=== PATIENT | female | born 1960 | race Caucasian/White ===

== ENCOUNTER → 2023-09-09 09:05 | Outpatient (REF) | payer OTHER, SELFPAY ==
[2023-09-09 10:23] LABS: Urine Albumin Trace (Neg - Trace); Urine Bilirubin 1+ (Negative); Urine Character Clear (Clear); Urine Color Yellow; Urine Glucose Negative (Negative); Urine Ketone Trace (Negative); Urine Leukocyte 1+ (Negative); Urine Nitrite Negative (Negative); Urine Occult Blood 1+ (Negative); Urine Specific Gravity 1.025 (<1.030); Urine Urobilinogen Negative (Neg - 1+)
[2023-09-09 10:24] LABS: % Basophils 0.9 % (0-2); % Eosinophils 2.5 % (0-6); % Immature Granulocytes 0.5 % (0-0.5); % Monocytes 6.2 % (1.7-9.3); % Neutrophils 63.9 % (42.2-75.2); Absolute Basophils 0.1 10^3/uL (0-0.2); Absolute Eosinophils 0.2 10^3/uL (0-0.7); Absolute Lymphocytes 1.7 10^3/uL (1.2-3.4); Absolute Monocytes 0.4 10^3/uL (0.1-0.6); Absolute Neutrophils 4.1 10^3/uL (1.4-6.5); Hematocrit 47.2 % (37.0-47.0); Hemoglobin 15.8 g/dL (12.0-16.0); Mean Corp Hgb Conc. 33.5 g/dL (33.0-37.0); Mean Corpuscular Hgb 28.5 pg (27.0-31.0); Nucleated Red Blood Cells % 0 %; Platelet Count 236 10^3/uL (130-400); Red Blood Cell Count 5.55 10^6/uL (4.20-5.40); Red Cell Dist. Width 12.4 % (11.5-14.5); White Blood Cell Count 6.3 10^3/uL (4.8-10.8)
[2023-09-09 10:47] LABS: ALT (SGPT) 14 U/L (0-35); AST (SGOT) 22 U/L (14-36); Albumin 4.6 g/dl (3.5-5.0); Alkaline Phosphatase 72 U/L (38-126); Blood Urea Nitrogen 18 mg/dl (7-17); Calcium 10.2 mg/dl (8.4-10.2); Carbon Dioxide 26 mmol/L (22-30); Chloride 103 mmol/L (98-107); Glucose 97 mg/dl (70-99); HDL Cholesterol 61 mg/dl; LDL Cholesterol, Calculated 74 mg/dl; Sodium 141 mmol/L (135-145); Total Bilirubin 0.6 mg/dl (0.2-1.3); Total Cholesterol 151 mg/dl (50-199); Total Protein 7.2 g/dl (6.3-8.2); Triglyceride 82 mg/dl (10-149); Very Low Density Lipoprotein 16 mg/dl (0-30); eGFR > 60.00
[2023-09-09 10:57] LABS: Urine Mucus Many
[2023-09-09 10:58] LABS: Urine Amorphous Seen; Urine Squamous Cell 0-2 /LPF (Few)
[2023-09-09 10:59] LABS: Urine Hyaline Cast 0-2 /LPF (0-2)
[2023-09-09 11:02] LABS: Urine Bacteria Few (Negative)
[2023-09-09 11:18] LABS: TSH Reflex To Free T4 3.65 uIU/ml (0.47-4.68)
== END ==
LOC: RAD 09:05
PROVIDERS: ATTENDING PHYSICIAN Nurse Practitioner Family
DX: Z76.89 Persons encountering health services in other specified circumstances (principal); Z01.89 Encounter for other specified special examinations; R06.09 Other forms of dyspnea; R07.89 Other chest pain; Z86.711 Personal history of pulmonary embolism
CPT/HCPCS: 36415; 71046; 71275; 80053; 80061; 81003; 81015; 84443; 85025; 85379; 87086; 93005; Q9967

== ENCOUNTER 2023-09-09 17:49 | Inpatient (IN) | payer OTHER, SELFPAY ==
[2023-09-09] VITALS (8 sets, daily range): BP systolic 116–148; BP diastolic 49–89; BMI 35.8; BMI 35.9
--- NOTE | 2023-09-09 16:08 | EDRN ---
the pt on RA was 92%, Emilie SUAREZ at the pts bedside and per provider 2L NC was placed on the pt, Sp02 came up to 96%, will continue to monitor the pt closely
[2023-09-09 16:19] LABS: % Basophils 0.6 % (0-2); % Eosinophils 3.3 % (0-6); % Immature Granulocytes 0.3 % (0-0.5); % Lymphocytes 29.2 % (20.5-51.1); % Monocytes 7.4 % (1.7-9.3); % Neutrophils 59.2 % (42.2-75.2); Absolute Eosinophils 0.2 10^3/uL (0-0.7); Absolute Lymphocytes 1.9 10^3/uL (1.2-3.4); Absolute Monocytes 0.5 10^3/uL (0.1-0.6); Absolute Neutrophils 3.8 10^3/uL (1.4-6.5); Hematocrit 43.2 % (37.0-47.0); Hemoglobin 15.1 g/dL (12.0-16.0); Mean Corpuscular Hgb 28.8 pg (27.0-31.0); Mean Corpuscular Volume 82.4 fL (81.0-99.0); Mean Platelet Volume 9.2 fL (7.4-10.4); Nucleated Red Blood Cells % 0 %; Platelet Count 260 10^3/uL (130-400); Red Blood Cell Count 5.24 10^6/uL (4.20-5.40); Red Cell Dist. Width 12.6 % (11.5-14.5); White Blood Cell Count 6.4 10^3/uL (4.8-10.8)
--- NOTE | 2023-09-09 16:22 | ED.GENMED ---
History of Present Illness
General
Chief Complaint: Breathing Problem
Source: patient
Exam Limitations: none
Time Seen by Provider: 09/09/23 15:47
Nursing documentation reviewed up to this point in time: agreed with
Travel History
Have you had any contact with someone who has COVID-19?: No
Do you have any symptoms of coronavirus? Fever > 100 degrees, chills, cough, shortness of breath, sore throat, loss of taste or smell, muscle aches, or headache?: No
History of Present Illness
History of Present Illness:
63 y/o F with h/o previous B/L PE
treated with xarelto in 2018 after traveling to [place]
had covid 1.5 weeks ago
then on 09/03 pt started having exertional chest pain, initially with more distance walking and stair walking but then progressed to a few steps causing symptoms
no fever, chills, vomiting, diarrhea, leg swelling, syncope
on no medications
no chest pain at rest or with exertion
her sob is only with exertion
Past History
Past History
ED Past Medical History: Other (PE)
ED Past Surgical History: None
Social History
Tobacco: Non-smoker
Alcohol: None
Drug: None
Personal: Single
Living: alone
Review of Systems
Review of Systems
Allergies reviewed?: Yes
All Other Systems: Not applicable
Phy Exam
Physical Exam
Physical Exam:
GENERAL: Alert , in no apparent distress
EYE: pupils equal and reactive
NECK: Supple
ENT: o/p clr, mmm.
CARDIAC: Regular rate and rhythm .
LUNGS: Clear breath sounds bilaterally, no acute respiratory distress, no wheezes/rales/rhonchi
ABDOMEN: Soft, without focal tenderness, no r/g, no cvat, normal bowel sounds
NEUROLOGICAL: Alert and oriented, no focal neuro deficits
SKIN: Warm and dry, skin intact.
MUSCULOSKELETAL: No edema, well perfused. neg rod's sign
PSYCH: Normal and appropriate interaction.
Scores
Heart Failure Risk
Heart Failure Risk Score: Not Applicable
Course
Orders/Labs/Results
Orders:
Orders
09/09/23 Dinner
Regular
At Your Request: Full Participation
Does patient need a safe tray?: No
09/09/23 15:45
Electrocardiogram (*1) Urgent
Reason for Study: Shortness of Breath
09/09/23 15:46
EKG- Treatment ONCE
09/09/23 15:53
COVID-19 Antigen Urgent
Source: Nasal Swab
Complete Blood Count/With Diff Urgent
Comprehensive Metabolic Panel Urgent
NT-proBNP Urgent
PT/INR [Prothrombin Time] Urgent
PTT Urgent
Troponin I Urgent
Influenza A+B Rapid Molecular Urgent
MICHELLE Source: Nasal Swab
Specimen Description:
09/09/23 16:16
Heparin 8,100 units IV NOW STA
09/09/23 16:[address] Non Medication Order As Directed
Physician Order: PTT 6 hours after initial start of Heparin infusion
Above order entered?: Yes
09/09/23 16:30
Heparin 05162 Units/250 ml 25,000 units in 250 ml IV PER PROTOCOL
Weight to be used for heparin protocol in kilograms (kg):: 100.698
Protocol:: DVT/PE
PTT Goal Range to be used:: PTT 73 to 111 seconds
Order type:: Initial
INITIAL Infusion Dose (UNITS/KG/hr) & then follow protocol:: 18 units/kg/hr
Infusion Dose in UNITS/hr & then follow protocol (UNITS/hr):: 1,800
INFUSION RATE in mL/hr & then follow protocol (mL/hr):: 18
For DVT/PE algorithm, re-bolus for low PTT?: Yes
PTT less than or equal to 64 seconds:: Re-bolus 80 units/kg (max 10,000units). Increase by 400 units/hr
(+ 4mL/hr)
PTT 64.1 to 72.9 seconds:: Re-bolus 40 units/kg (max 5,000 units). Increase by 200 units/hr
(+ 2mL/hr)
PTT 73 to 111 seconds:: Target Range. No change in rate.
PTT 111.1 to 130.9 seconds:: Decrease rate by 200 units/hr (- 2 mL/hr)
PTT 131 to 199.9 seconds:: HOLD for 1 hr. Then decrease by 300 units/hr (- 3mL/hr)
PTT greater than or equal to 200 seconds:: HOLD for 2 hrs & Notify Provider. Then decrease by 400 units/hr
(- 4mL/hr)
Lab follow-up:: Each change, PTT q6h until 2 consecutive are therapeutic. Then
PTT daily.
09/09/23 16:34
Heparin 67701 Units/250 ml 25,000 units in 250 ml .ROUTE .STK-MED
09/09/23 16:42
Heparin 8,100 units IV PRN PRN
09/09/23 16:43
Heparin 4,000 units IV PRN PRN
09/09/23 17:13
Admit/Transfer Patient As Directed
Co-Sign Provider:
Level of Care: Inpatient admission
Assign to:: Telemetry
Physician / Group: Reza Aguirre
Diagnosis: Bilateral PE
Reason for Telemetry: Arrhythmia
Date to Stop Telemetry: 09/12/23
Time to Stop Telemetry: 11:00
Reason for Hospitalization: Bilateral PE
Expected length of stay greater than two midnights?: Yes
ELOS- Estimated Length of Stay in days: 3
I certify the patient meets the requirements for IP care: Yes
09/09/23 17:14
Code Status As Directed
Resuscitation Status: Full Code
09/09/23 19:29
Acetaminophen [Tylenol] 650 mg PO Q4HPRN PRN
Ondansetron Injectable [Zofran] 4 mg IV Q6HPRN PRN
09/09/23 19:29
Heparin Protocol- PTT Orders As Directed
PTT per Heparin protocol: -Obtain CBC and baseline PTT - if not already collected.
-Obtain PTT 6 hours from start of infusion. Then, every 6 hours until 2 consecutive
PTT's are therapeutic. Then, PTT Daily.
-With each rate change, obtain PTT every 6 hours until 2 consecutive PTT's are
therapeutic. Then, PTT Daily.
Activity As Directed
Activity Level: As Tolerated
With Assistance
Notify MD As Directed
Notify physician if: PTT is greater than or equal to 200.
Vital Signs As Directed
Frequency: Per unit guidelines
09/09/23 23:26
PTT Urgent
09/10/23 06:00
Basic Metabolic Panel IN AM
Complete Blood Count/No Diff IN AM
09/12/23 11:00
DC Protocol for Telemetry ONCE
Abnormal Lab Results
09/09/23
15:53
BUN 20 H mg/dl
(7-17)
Glucose 118 H mg/dl
(70-99)
09/09/23 15:53
09/09/23 15:53
Vital Signs
Initial and Last Documented VS:
Initial Vital Signs
Temp Pulse Resp BP Pulse Ox
97.6 F 103 20 139/89 92
09/09/23 15:30 09/09/23 15:30 09/09/23 15:30 09/09/23 15:30 09/09/23 15:30
Last Documented Vital Signs
Temp Pulse Resp BP Pulse Ox
97.9 F 62 18 135/71 97
09/09/23 23:46 09/09/23 23:46 09/09/23 23:46 09/09/23 23:46 09/09/23 19:59
MDM/Problems Addressed
Differential Diagnosis Includes:
PE, right heart strain
MDM/Problems Addressed:
63 y/o F with h/o PE in 2018 after travel; not anticoagulated; had covid last week; starting 09/03 she started having exertional SOB; outpatient CT shows b/l Upper lobe and Lower lobe PE with no ct evidence R heart strain; ekg with t wave inv III,v1,
v2, v3, v4; stable vitals, pulse ox 92% RA and on 2L for comfort but in no distress; still pending trop but no CP. d/w dr. ashley from pulmonary, recommended heparin, no IR.
*Critical Care Note
Total Time (30-74mins, 75-104mins- exclusive of procedures): Not Applicable
ED Attending Note
-
Portions of this chart may have been created with voice recognition software.� Occasional wrong word or��sound alike� substitutions may have occurred due to the inherent limitations of voice recognition software.
Discharge Plan
Departure
Patient Disposition: Admit
Date of Disposition: 09/09/23
Time of Disposition: 16:33
Admit to: Telemetry
Presentation/result/management discussed w/ accepting MD/DO: Hospitalist
Condition: Fair
Covid-19: Not Applicable
Discharge Problem:
Bilateral pulmonary embolism
Interventions
Interventions:
*Risk Screen - Suicide Last Done: 09/09/23 15:30
*General Assessment Last Done: 09/09/23 15:57
*Neglect/Abuse Screening Last Done: 09/09/23 15:30
ED- Fall Risk Assessment Last Done: 09/09/23 15:57
*ED COVID-19 Vaccine History Last Done: 09/09/23 19:58
*Nursing Disposition Last Done: 09/09/23 19:00
ED- Cardiac Assessment Last Done: 09/09/23 19:12
ED- Pulmonary Assessment Last Done: 09/09/23 19:12
Discharge Date and Time
Discharge Date/Time: 09/09/23 19:00
[2023-09-09 16:25] LABS: COVID-19 Antigen Negative (Negative)
--- NOTE | 2023-09-09 16:26 | PHANOTE ---
med rec note- patient said that she has been using ivermectin at her md office, explain that she doesn't get it at her pharmacy that she makes an appointment and the md gives her the medication to take at the office. she also explain that she last
took it about 3 days ago
[2023-09-09 16:39] LABS: ALT (SGPT) 16 U/L (0-35); AST (SGOT) 24 U/L (14-36); Albumin 4.3 g/dl (3.5-5.0); Alkaline Phosphatase 74 U/L (38-126); Blood Urea Nitrogen 20 mg/dl (7-17); Carbon Dioxide 25 mmol/L (22-30); Chloride 103 mmol/L (98-107); Estimated Creatinine Clearance 88 ml/min; Glucose 118 mg/dl (70-99); INR 1.01; PT 13.1 Sec (11.4-14.6); Sodium 139 mmol/L (135-145); Total Bilirubin 0.4 mg/dl (0.2-1.3); Total Protein 6.8 g/dl (6.3-8.2); eGFR > 60.00
[2023-09-09 16:40] LABS: APTT 27.5 Sec (23.4-35.0)
[2023-09-09 16:45] LABS: NT-proBNP 479 pg/ml
[2023-09-09] MEDS: HEPARIN 8100 UNITS IV (17:03)
[2023-09-09] MEDS: HEPARIN 25000 UNITS/250 ML IV (17:04)
--- NOTE | 2023-09-09 17:11 | EDRN ---
s pts Sp02 was 91% on 2L NC, this RN notified the provider Emilie SUAREZ and per provider the pt was titrated to 3L NC, the pts Sp02 came up to 94%, will continue to monitor the pt closely
--- NOTE | 2023-09-09 17:32 | HPS.HSE ---
Addendum entered and electronically signed by Reza Aguirre MD 09/09/23 18:12:
I saw and examined the patient.
The TAPE CONTROLLED MACHINE STITCHER's note was reviewed and I agree with the note.
63-year-old female with recent COVID infection came to ER for having new onset of dyspnea on exertion for 5 days. Patient had associated chest tightness, no palpitations/dizziness . Patient with history of provoked DVT/PE in 2019 after travel.
Patient was on Xarelto at the time.
HEENT: No pallor, cyanosis, or jaundice. Throat clear.
NECK: Supple. No JVD.
RESPIRATORY: Lungs clear to auscultation.
CVS: S1, S2 normal. RRR. No murmur, rub or gallop.
ABDOMEN: Soft, non-tender. No distension. BS+/normal.
EXTREMITIES: No peripheral cyanosis or edema.
FARM SUPERVISOR: AOx3. No focal deficits.
Bilateral PE
Acute hypoxic resp insufficiency
-CT chest pain showing bilateral lung upper lobe emboli burden no evidence of heart strain
-Check proBNP/troponin level
-Patient vitally stable, systolic blood pressure in 130s. On 1-2/min oxygen with O2 sat 97%
-ER discussed with on-call bike assembler and no indication for emergent thrombolysis. Continue monitoring
-PESI score 2 -low risk
-Maintain heparin drip, patient have been on xarelto on first episode of VTE
Full code
Original Note:
Family Physician
-
Family Physician: Som Bansal
Chief Complaint
-
Shortness of Breath
History of Present Illness
Patient is a 63 y/o female with PMH of sleep apnea, stroke and provoked B/L PE in 2019 who presents to ED complaining of worsening dyspnea on exertion x 5 days. Patient says she tested positive for Covid-Tuesday08/31/2023 and was prescribed
Ivermectin which she took for 5 days and her viral symptoms resolved. On Tuesday09/04/2023 patient noticed SOB with climbing a flight of stairs which worsened over the following days to SOB with just a few steps. She says her lungs feel 'stiff and
rigid' with breathing and admits to chest tightness. Patient also admits to palpitations and mostly dry cough for the past 5 days. She denies hemoptysis, chest pain, pleurisy, lower extremity edema, and weight gain. She admits to prior PE following
a flight to [place] in Jun 2019. She denies PMH of hypertension, hyperlipidemia, and diabetes. She denies hormone replacement therapy. She denies known family history of DVT, pulmonary embolism, stroke, and hematologic pathologies.
Medical History
Past Medical History
Past Medical History: Reports Other
Additional Past Medical History:
Pulmonary Embolism
Atrial Septal Defect
Prior Stroke
Obstructive Sleep Apnea
Past Surgical History: Reports Other
Additional Past Surgical History:
Tonsillectomy
Social History
Tobacco: Non-smoker
Family History
Family History: Other (Patient denies any family history of DVT/PE)
Allergies / Home Medications
Allergies reflects when Allergies were last updated in [facility].
Home Medications with original date entered in [facility]
Allergy/Medication List:
Allergies
Allergy/AdvReac Type Severity Reaction Status Date / Time
No Known Allergies Allergy Unverified 09/09/23 16:37
Home Medications
No Meds [No Current Medications] 09/09/23
Review of Systems
-
A 12 point ROS was completed and negative except as noted: Yes
Constitutional: Denies Fever or Chills
Respiratory: Reports Trouble Breathing
Cardiac: Reports Chest Pain (Chest Tightness) and Palpitations
Abdomen/GI: Denies Abdominal Pain, Nausea, Vomiting or Diarrhea
Physical Exam
Vital Signs
Vital Signs
Temp Pulse Resp BP Pulse Ox
97.6 F 79 15 118/66 95
09/09/23 15:30 09/09/23 17:00 09/09/23 17:00 09/09/23 17:00 09/09/23 17:00
Physical Exam
General: Comfortable and Conversant
HEENT: Anicteric and Moist mucous membranes
Respiratory: Clear and Non Labored Respirations
Cardiac: S1/S2 and Regular Rhythm
GI: Soft, Non Tender and Non Distended
Rectal: Deferred by Provider
Musculoskeletal: No Clubbing, No Cyanosis and No Edema
Skin: Warm and Dry
Neuro: Awake, Alert, Oriented and Nonfocal/grossly intact
Psych: Calm
Laboratory Results
-
09/09/23 15:53
09/09/23 15:53
Laboratory Results
PT 13.1 Sec (11.4-14.6) 09/09/23 15:53
INR 1.01 09/09/23 15:53
APTT Cancelled 09/09/23 16:19
Total Bilirubin 0.4 mg/dl (0.2-1.3) 09/09/23 15:53
AST 24 U/L (14-36) 09/09/23 15:53
ALT 16 U/L (0-35) 09/09/23 15:53
Alkaline Phosphatase 74 U/L (38-126) 09/09/23 15:53
Troponin I 0.030 ng/ml 09/09/23 15:53
Data Reviewed
-
CT Scan: Report Reviewed by me
Lab Data: Labs Reviewed by me
Impression/Plan
-
Acute Hypoxic Respiratory Insufficiency secondary to Bilateral Pulmonary Embolism
-Continue heparin drip
-Consider Echo
-Plan to transition to Xarelto prior to discharge
Obstructive Sleep Apnea
-Patient reports intolerance to CPAP
Code Status: Full Code
--- NOTE | 2023-09-09 18:32 | EDRN ---
the pt pressed the call link and this RN entered the pts room, the pt stated to this RN that she needed to use the bathroom, this RN unhooked the pt from the monitor and the pt was able to ambulate to the bathroom and back to the stretcher with no
issues, this RN placed the pt back on the monitor and the pt is in NSR in the 70's, last BP 117/58 (77), the pt on RA while walking to the bathroom and Sp02 dipped to 88%, this RN placed the pt back on 3L NC and Sp02 came up to 94%, no c/o chest
pain, no c/o SOB, the pts Heparin gtt is currently still running at 180units/hour, the pt is resting in stretcher in the lowest position, side rails up x2, call link within reach, HOB elevated, will continue to monitor the pt closely
--- NOTE | 2023-09-09 19:00 | EDRN ---
this RN called the receiving unit and notified them that paper report was going to be tubed up
[2023-09-10 00:11] LABS: APTT > 200 Sec (23.4-35.0)
--- NOTE | 2023-09-10 00:58 | PTCARENOTE ---
Addendum entered by Tayla Grier RN 09/10/23 01:03:
Pt lab called with PTT>200. OIL REFINER self contained behavior unit teacher made aware of it & pt heparin drip held as per protocol & will restart at lower rate as per orders. Pt asymptomatic at this time.Call [place] in reach.
Original Note:
Pt aaox3 able to make her needs known,pleasant & cooperative. Pt received from ER with heparin drip running at 18ml/hr. Pt oriented to room & call link in reach. Plan of care continued.
[2023-09-10 03:51] VITALS: BP 117/63
[2023-09-10 07:35] VITALS: BP 117/58
[2023-09-10 08:44] LABS: Hematocrit 45.4 % (37.0-47.0); Hemoglobin 15.2 g/dL (12.0-16.0); Mean Corp Hgb Conc. 33.5 g/dL (33.0-37.0); Mean Corpuscular Hgb 28.6 pg (27.0-31.0); Mean Corpuscular Volume 85.3 fL (81.0-99.0); Mean Platelet Volume 9.1 fL (7.4-10.4); Platelet Count 233 10^3/uL (130-400); Red Blood Cell Count 5.32 10^6/uL (4.20-5.40); Red Cell Dist. Width 12.5 % (11.5-14.5); White Blood Cell Count 4.9 10^3/uL (4.8-10.8)
[2023-09-10 08:48] LABS: APTT 98.8 Sec (23.4-35.0)
[2023-09-10 09:53] LABS: Blood Urea Nitrogen 15 mg/dl (7-17); Calcium 9.6 mg/dl (8.4-10.2); Carbon Dioxide 23 mmol/L (22-30); Chloride 105 mmol/L (98-107); Estimated Creatinine Clearance 89 ml/min; Glucose 97 mg/dl (70-99); Potassium 3.8 mmol/L (3.5-5.1); Sodium 140 mmol/L (135-145); eGFR > 60.00
--- NOTE | 2023-09-10 10:49 | W.PN.HOSP.TC ---
Today's Communication/Plan
-
wean off o2
f/u venous doppler report
Assessment / Plan
Assessment / Plan
Bilateral PE
Acute hypoxic resp insufficiency
-CT chest pain showing bilateral lung upper lobe emboli burden no evidence of heart strain
-proBNP/troponin WNL
-Patient vitally stable, systolic blood pressure in 130s.�
-On 2-3L/min oxygen with O2 sat 97%
-ER discussed with on-call fibreglass lay up worker and no indication for emergent thrombolysis.� Continue monitoring
-PESI score 2� -low risk
-Maintain heparin drip, patient have been on xarelto on first episode of VTE
-Le venous doppler pending today
Full code
Anticipated Discharge: 24 - 48 hours
Subjective/Interval History
-
Date of Service: September 10, 2023
Remains hypoxic on 2-3 L oxygen nasal cannula
No reported dyspnea/chest pain
Objective Data
-
Labs:
Laboratory Results
09/09/23 09/10/23 09/10/23
23:26 08:17 14:20
WBC 4.9
Hgb 15.2
Hct 45.4
Plt Count 233
APTT > 200 H* 98.8 H Pending
Sodium 140
Potassium 3.8
Chloride 105
Carbon Dioxide 23
BUN 15
Creatinine 0.8
Glucose 97
Calcium 9.6
Vital Signs:
Vital Signs
Temp Pulse Resp BP Pulse Ox
97.5 F 59 18 117/58 97
09/10/23 07:35 09/10/23 07:35 09/10/23 07:35 09/10/23 07:35 09/10/23 07:35
I&O
09/09/23 09/10/23 09/11/23
06:59 06:59 07:59
Intake Total 240 / 240
Balance 240 / 240
Review of Systems
-
Respiratory: Reports No Symptoms
Cardiac: Reports No Symptoms
Abdomen/GI: Reports No Symptoms
Physical Exam
-
General: No Apparent Distress and Comfortable
HEENT: Negative Oxygen
Respiratory: Clear to Auscultation
Cardiac: Regular Rhythm and S1/S2; Negative Murmur or Rub
GI: Soft, Nontender and Nondistended
Musculoskeletal: No Edema
Neuro: Awake, Alert, Oriented, No Motor Deficits and Nonfocal/Grossly Intact
Psych: Calm
[2023-09-10] MEDS: HEPARIN 25000 UNITS/250 ML IV (11:27)
[2023-09-10 11:30] VITALS: BP 124/64
[2023-09-10 14:56] LABS: APTT 96.3 Sec (23.4-35.0)
[2023-09-10 15:28] VITALS: BP 119/49
[2023-09-10 19:45] VITALS: BP 120/58
[2023-09-10] MEDS: VISBIOME 1 CAP PO (20:38)
[2023-09-10 23:27] VITALS: BP 127/70
[2023-09-11] VITALS (7 sets, daily range): BP systolic 99–146; BP diastolic 63–80; O2SAT 87–94
[2023-09-11] MEDS: HEPARIN 25000 UNITS/250 ML IV (06:37)
[2023-09-11 06:51] LABS: APTT 117.6 Sec (23.4-35.0)
[2023-09-11] MEDS: VISBIOME 1 CAP PO (08:36)
[2023-09-11] MEDS: XARELTO 15 MG PO ×2 (11:01→20:47)
--- NOTE | 2023-09-11 11:04 | PTCARENOTE ---
Heparin drip discontinued at this time per MD orders and xarelto administered.
--- NOTE | 2023-09-11 11:24 | PTCARENOTE ---
Pulsox 94% at rest on RA. After walking about 350 ft pt became SOB and pulsox dropped to 87% on RA. 2L O2 placed on patient and pulsox recovered to 93%. Pt continued to ambulate approx 100ft on 2L and pulsox remained 91% or above.
--- NOTE | 2023-09-11 11:47 | W.PN.HOSP.TC ---
Today's Communication/Plan
-
home o2 arrangement
discharge planning
Assessment / Plan
Assessment / Plan
Bilateral PE
Acute hypoxic resp insufficiency
-CT chest pain showing bilateral lung upper lobe emboli burden no evidence of heart strain
-proBNP/troponin WNL
-ER discussed with on-call supervisor shed workers and no indication for emergent thrombolysis.� Continue monitoring
-PESI score 2� -low risk
-Maintain heparin drip, patient have been on xarelto on first episode of VTE
-Le venous doppler normal.
-Home o2 assessment orderd
-changed to xarelto
Full code
Anticipated Discharge: Within 24 hours
Subjective/Interval History
-
Date of Service: September 11, 2023
Continues to remain hypoxic
no chest pain/palpitation
Objective Data
-
Labs:
Laboratory Results
09/11/23 09/11/23
06:23 14:30
APTT 117.6 H Pending
Vital Signs:
Vital Signs
Temp Pulse Resp BP Pulse Ox
97.5 F 70 20 132/65 95
09/11/23 11:35 09/11/23 11:35 09/11/23 11:35 09/11/23 11:35 09/11/23 11:35
I&O
09/10/23 09/11/23 09/12/23
05:59 06:59 06:59
Intake Total
Balance
Review of Systems
-
Respiratory: Reports No Symptoms
Cardiac: Reports No Symptoms
Abdomen/GI: Reports No Symptoms
Physical Exam
-
General: No Apparent Distress and Comfortable
HEENT: Negative Oxygen
Respiratory: Clear to Auscultation
Cardiac: Regular Rhythm and S1/S2; Negative Murmur or Rub
GI: Soft, Nontender and Nondistended
Neuro: Awake, Alert, Oriented, No Motor Deficits and Nonfocal/Grossly Intact
Psych: Calm
--- NOTE | 2023-09-11 14:36 | CM ---
CM following re: d/c planning
Chart reviewed
CM met with the patient at bedside; IA completed
Pt states that she resides alone in a 1SH with 4STE
CREDIT UNION TELLER patient reports independence at baseline
Pt has no past SNF hx, no recent VN hx (last VN was in 2009 & pt doesn't recall the agency) and no noted DME
Pt does confirm prescription coverage and rx's are filled at [facility]
Pt PCP-Som Bansal
Pt had home O2 assessment and does qualify for home O2
CM asked the patient if she had an agency she preferred to use and she was not familiar with any and was open to whichever could deliver the quickest
CM faxed referral to [facility] and Laura did send this teletypewriter operator a confirmation text that clinicals were received & the patient would be receiving a portable tank delivered bedside tomorrow 09/12/23 by 2pm
No additional d/c needs identified
CM will continue to follow and assist with any additional needs as indicated
PLAN; d/c home with O2 provided by [employer] when stable
[2023-09-12 03:41] VITALS: BP 120/62
[2023-09-12 07:45] LABS: Hematocrit 42.1 % (37.0-47.0); Hemoglobin 14.3 g/dL (12.0-16.0); Mean Corpuscular Hgb 28.9 pg (27.0-31.0); Mean Corpuscular Volume 85.2 fL (81.0-99.0); Platelet Count 214 10^3/uL (130-400); Red Blood Cell Count 4.94 10^6/uL (4.20-5.40); Red Cell Dist. Width 12.2 % (11.5-14.5); White Blood Cell Count 4.5 10^3/uL (4.8-10.8)
[2023-09-12 07:50] VITALS: BP 118/70
--- NOTE | 2023-09-12 08:18 | W.PN.HOSP.TC ---
Today's Communication/Plan
-
Continue anticoagulation
Remains symptomatic with SOB and earlier today, some dizziness
Echo ordered
Appreciate pulmonary recommendations
Assessment / Plan
Assessment / Plan
Physical Exam
General: No Apparent Distress and Comfortable
HEENT: Negative Oxygen
Respiratory: Clear to Auscultation
Cardiac: Regular Rhythm and S1/S2; Negative Murmur or Rub
GI: Soft, Nontender and Nondistended
Neuro: Awake, Alert, Oriented, No Motor Deficits and Nonfocal/Grossly Intact
Psych: Calm
Assessment/Plan
Bilateral PE
History of PE
Acute hypoxic resp insufficiency
-CT chest pain showed bilateral lung upper lobe emboli burden no evidence of heart strain
-proBNP/troponin WNL
-ER discussed with on-call production generalist and no indication for emergent thrombolysis.� Continue monitoring
-PESI score 2 - low risk
-Was on Heparin drip, patient have been on xarelto on first episode of VTE
-Le venous doppler normal.
-Home o2 assessment ordered
-Continue Xarelto
-Echocardiogram ordered
-Pulmonary consulted
Full code
Anticipated Discharge: Within 24 hours
Subjective/Interval History
-
Date of Service: September 12, 2023
Patient was seen and examined. She reported some dizziness/lightheadedness this morning which later resolved, she denied any chest pain. She reported ongoing shortness of breath especially on exertion for the past few days.
Objective Data
-
Labs:
Laboratory Results
09/12/23
07:05
WBC 4.5 L
Hgb 14.3
Hct 42.1
Plt Count 214
Sodium Pending
Potassium Pending
Chloride Pending
Carbon Dioxide Pending
BUN Pending
Creatinine Pending
Glucose Pending
Calcium Pending
Vital Signs:
Vital Signs
Temp Pulse Resp BP Pulse Ox
97.9 F 57 18 120/62 96
09/12/23 03:41 09/12/23 03:41 09/12/23 03:41 09/12/23 03:41 09/12/23 03:41
I&O
09/11/23 09/12/23 09/13/23
06:59 06:59 06:59
Intake Total 1120 / 1120
Balance 1120 / 1120
[2023-09-12 08:19] LABS: Blood Urea Nitrogen 17 mg/dl (7-17); Calcium 9.4 mg/dl (8.4-10.2); Carbon Dioxide 27 mmol/L (22-30); Chloride 106 mmol/L (98-107); Estimated Creatinine Clearance 89 ml/min; Glucose 93 mg/dl (70-99); Potassium 4.1 mmol/L (3.5-5.1); Sodium 139 mmol/L (135-145); eGFR > 60.00
[2023-09-12] MEDS: VISBIOME 1 CAP PO (09:02)
[2023-09-12] MEDS: XARELTO 15 MG PO ×2 (09:02→20:53)
[2023-09-12 11:40] VITALS: BP 131/70
--- NOTE | 2023-09-12 11:41 | CM ---
Addendum entered by Krys Ivory 09/12/23 16:27:
CM alerted, likely no dc today
Plan for echo and pulm consult
Original Note:
CM met with pt bedside
[employer] has delivered portable O2 and it is bedside
Plan for call for delivery of concentrator upon return to home
No other dc needs noted
Pt plans to drive herself home
Update to Dr. Truong
Discharge Disposition- home with new O2/[facility]
[2023-09-12 15:45] VITALS: BP 121/68
--- NOTE | 2023-09-12 16:44 | CON.PUL ---
Consultation
Consultation Request
Date/Time Consultation Requested: 09/12/2023 11:53
Date/Time Consultation Performed: 09/12/2023 1302
Requesting Provider: Dr. Truong
Performing Provider: Dr. Covington
Reason for Consultation: Acute PE/hypoxia
Medical History
-
Chief Complaint: SOB + cough
History of Present Illness:
63-year-old female with a past medical history of CHOLO on CPAP, history of Lyme disease and reported history of COVID-19 who presented on 09/09/2023 with worsening shortness of breath and cough. On 09/09/2023, CTA chest showed a 1.6 x 1.4 cm clot in the
distal right main pulmonary artery with extension into the vessels of the right upper lobe and right lower lobe. There was additional thrombogenic evidence in the distal RML, KAHLIL, LLL consistent with pulmonary embolism. There is no evidence of
right heart strain. Patient was initially started on heparin infusion and managed by the hospitalist service. Lower extremity duplex was checked and was negative on 09/09. Patient has continued to require a low amount of oxygen (up to 2L.min NC with
SpO2 97-100%) and pulmonary is now consulted for additional recommendations/management.
Of note, patient had previously followed-up with our [facility] office with Dr. Wells with last visit on 04/27/2019. Patient was following with us for CHOLO to confirm CPAP compliance.
Evaluated the patient today, she was on room air and breathing comfortably. She says she wears oxygen at home mainly at 2 L/min with sleep and as needed during the day (@ 2L/min NC). She currently endorses fatigue. Denies any worsening shortness
of breath, headache, chest pain, fevers or chills.
PMHx: CHOLO on CPAP, obese, history of Lyme disease, history of right hand osteomyelitis s/p surgery
PSHx: Tonsillectomy, right hand surgery, toe surgery
Past Medical History
Past Medical History: Other (Above as per HPI)
Past Surgical History: Other (Above as per HPI)
Social History
Tobacco: Non-smoker
Alcohol: None
Drug: None
Family History
Family History: Reviewed & Not Pertinent
Allergies / Home Medications
Allergies
Allergy/AdvReac Type Severity Reaction Status Date / Time
No Known Allergies Allergy Unverified 09/09/23 16:37
Home Medications
Medication Instructions Recorded Confirmed Last Taken Type
No Meds [No Current Medications] 09/09/23 09/09/23 Unknown History
Review of Systems
-
History Source: Patient
All other systems: Negative unless noted (12 point ROS performed and is negative unless mentioned above.)
Vitals / Labs / Diagnostic Testing
Vital Signs
Temp Pulse Resp BP Pulse Ox
97.9 F 74 18 121/68 100
09/12/23 15:45 09/12/23 15:45 09/12/23 15:45 09/12/23 15:45 09/12/23 15:45
Lab Data
09/12/23 07:05
09/12/23 07:05
Microbiology
09/09/23 15:53 Nasal Swab Influenza Types A & B ([facility]ANA) - Final
Negative for Influenza A & B, NAAT
Negative results must be combined with clinical observations
and patient history.
Nucleic Acid Amplification test (NAAT)performed on the
[employer] platform.
Diagnostic Testing:
Physical Exam
-
HEENT: Normocephalic and Anicteric
Cardiovascular: S1/S2 and Peripheral Edema (negative)
Respiratory: Clear, Wheeze (negative), Rales (negative), Rhonchi (negative) and Non-Labored Respirations
GI: Soft, Non Distended and Non Tender
Neurology: Awake and Alert
Skin: Warm and Dry
General: Comfortable and Fever (negative)
Assessment
-
Assessment: 63-year-old female with a past medical history of CHOLO on CPAP, history of Lyme disease and reported history of COVID-19 who presented on 09/09/2023 with worsening shortness of breath and cough. On 09/09/2023, CTA chest showed a 1.6 x 1.4 cm
clot in the distal right main pulmonary artery with extension into the vessels of the right upper lobe and right lower lobe. There was additional thrombogenic evidence in the distal RML, KAHLIL, LLL consistent with pulmonary embolism. There is no
evidence of right heart strain. Patient was initially started on heparin infusion and managed by the hospitalist service. Lower extremity duplex was checked and was negative on 09/09. Patient has continued to require a low amount of oxygen (up to
2L.min NC with SpO2 97-100%) and pulmonary is now consulted for additional recommendations/management. Of note, patient had previously followed-up with our [facility] office with Dr. Wells with last visit on 04/27/2019. Patient was following with us
for CHOLO to confirm CPAP compliance.
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
Impression:
#Submassive PE
#Hx of ASD
#CHOLO on CPAP
#Obesity (BMI: 35.9)
Plan:
- Continue systemic anticoagulation - currently on Xarelto
- Continue supplemental O2 and maintain SpO2>90-94% --> Patient underwent walking pulse oximeter yesterday on 09/10 showing that she requires 2 L/min with activity
- Monitor for any side effects including bleeding whie on NOAC --> Case management consult to evaluate cost effectiveness of NOAC.
- Monitor for sudden worsening of heart rate with rate >120 or sudden drop in SBP >15-25% of baseline as this could indicate patient is developing obstructive shock; this is unlikely given how far out we are from her initial diagnosis of her acute
PE.
- Recommend outpatient evaluation by hematology for hypercoagulable workup.
- No need for repeat imaging at this time given her transthoracic echo shows normal biventricular size and systolic function.
- Continue CPAP with sleep; Do not drive while sleepy or tired; keep mask/tubing clean and remain fully compliant with CPAP especially in this acute setting s/p acute bilateral PE
- Continue Xarelto
- DVT ppx
Patient can likely be discharged home tomorrow as long as she feels well and denies any worsening SOB or fatigue and her O2 requirements are not worse.
Pulmonary service will continue to follow along. I will arrange for outpatient follow-up with our office.
42 minutes was used for this encounter today. There was low level medical decision making used for this encounter.
Data:
CTA Chest 09/09/2023: Bilateral upper lobe and lower lobe pulmonary emboli with moderate clot burden. No evidence of right heart strain.
LE Duplex 09-10-2023: Normal. No evidence of deep venous thrombosis
TTE 09-12-2023:�
Normal biventricular size and systolic function without regional wall motion
�abnormality.
�No significant valvular disease.
�No tricuspid regurgitation is seen.
�No pericardial effusion.
�No prior study available for comparison.
Outpatient [facility] Data:
��������Portable sleep study 12/12/2018:�Reviewed,�Clayton Burger 04/27/2019 01:33:03 PM >Demonstrated AHI 17 events per hour. Oxygen saturation down to 79%. Moderate Obstructivesleep apnea..�
Compliance Data:
������ COMPLIANCE DATA:�reviewed with patient Demonstrated 93.3% compliance. AHI 1.5 events per hour. Auto CPAP..�
[2023-09-12 19:21] VITALS: BP 107/68
[2023-09-12 23:27] VITALS: BP 115/58
[2023-09-13 03:43] VITALS: BP 113/51
[2023-09-13 07:00] VITALS: BP 142/78
[2023-09-13] MEDS: XARELTO 15 MG PO (08:23)
[2023-09-13] MEDS: VISBIOME 1 CAP PO (08:23)
[2023-09-13 08:34] LABS: Hemoglobin 14.9 g/dL (12.0-16.0); Mean Corp Hgb Conc. 33.9 g/dL (33.0-37.0); Mean Corpuscular Hgb 28.6 pg (27.0-31.0); Mean Corpuscular Volume 84.5 fL (81.0-99.0); Mean Platelet Volume 8.9 fL (7.4-10.4); Platelet Count 235 10^3/uL (130-400); Red Blood Cell Count 5.21 10^6/uL (4.20-5.40); Red Cell Dist. Width 12.2 % (11.5-14.5); White Blood Cell Count 4.5 10^3/uL (4.8-10.8)
--- NOTE | 2023-09-13 08:38 | W.PN.PUL3 ---
Today's Communication / Plan
-
Continue NOAC
Resume CPAP once back home
Continue O2 as prescribed
Patient awaiting discharge home today. Pulmonary service will now sign off. Please reconsult if there are any additional questions or concerns, or if respiratory status deteriorates.. I will arrange for outpatient follow-up with our office.
Assessment
-
Assessment: 63-year-old female with a past medical history of CHOLO on CPAP, history of Lyme disease and reported history of COVID-19 who presented on 09/09/2023 with worsening shortness of breath and cough. On 09/09/2023, CTA chest showed a 1.6 x 1.4 cm
clot in the distal right main pulmonary artery with extension into the vessels of the right upper lobe and right lower lobe. There was additional thrombogenic evidence in the distal RML, KAHLIL, LLL consistent with pulmonary embolism. There is no
evidence of right heart strain. Patient was initially started on heparin infusion and managed by the hospitalist service. Lower extremity duplex was checked and was negative on 09/09. Patient has continued to require a low amount of oxygen (up to
2L.min NC with SpO2 97-100%) and pulmonary is now consulted for additional recommendations/management. Of note, patient had previously followed-up with our [facility] office with Dr. Wells with last visit on 04/27/2019. Patient was following with us
for CHOLO to confirm CPAP compliance.
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
Impression:
#Submassive bilateral PE
#Hx of ASD - no ASD found on TTE from 09/12/2023
#CHOLO on CPAP
#Obesity (BMI: 35.9)
Plan:
- Continue systemic anticoagulation - currently on Xarelto
- Continue supplemental O2 and maintain SpO2>90-94% --> Patient underwent walking pulse oximeter on 09/10 showing that she requires 2 L/min with activity
- Monitor for any side effects including bleeding while on NOAC --> Case management consult to evaluate cost effectiveness of NOAC.
- Monitor for sudden worsening of heart rate with rate >120 or sudden drop in SBP >15-25% of baseline as this could indicate patient is developing obstructive shock; this is unlikely given how far out we are from her initial diagnosis of her acute
PE.
- Recommend outpatient evaluation by hematology for hypercoagulable workup.
- No need for repeat imaging at this time given her transthoracic echo shows normal biventricular size and systolic function.
- Continue CPAP with sleep; Do not drive while sleepy or tired; keep mask/tubing clean and remain fully compliant with CPAP especially in this acute setting s/p acute bilateral PE
- DVT ppx: Xarelto
Patient can be discharged home today as she feels well and denies any worsening SOB or fatigue and her O2 requirements are stable.
Pulmonary service will now sign off. Thank you for allowing me to be involved in the care of this patient. Please reconsult if there are any additional questions or concerns, or if respiratory status deteriorates.. I will arrange for outpatient
follow-up with our office.
27 minutes was used for this encounter today. There was low level medical decision making used for this encounter.
Data:
CTA Chest 09/09/2023: Bilateral upper lobe and lower lobe pulmonary emboli with moderate clot burden. No evidence of right heart strain.
LE Duplex 09-10-2023: Normal. No evidence of deep venous thrombosis
TTE 09-12-2023:�
Normal biventricular size and systolic function without regional wall motion
�abnormality.
�No significant valvular disease.
�No tricuspid regurgitation is seen.
�No pericardial effusion.
Interatrial septum is intact with no evidence of shunting by color flow
�Doppler. No intracardiac mass or thrombus formation seen.
�No prior study available for comparison.
Outpatient [facility] Data:
��������Portable sleep study 12/12/2018:�Reviewed,�Clayton Burger 04/27/2019 01:33:03 PM >Demonstrated AHI 17 events per hour. Oxygen saturation down to 79%. Moderate Obstructivesleep apnea..�
Compliance Data:
������ COMPLIANCE DATA:�reviewed with patient Demonstrated 93.3% compliance. AHI 1.5 events per hour. Auto CPAP..�
Subjective Data
-
Date of Service:
Date of Service: September 13, 2023
Chief Complaint: Pulmonary Follow Up
Subjective:
Patient seen and evaluated at bedside. She is doing well. Currently on 2 L/min and is being prepared for discharge home. She has a O2 tank that she will use in her car for drive home. She feels well with no shortness of breath or chest pain,
although she does state that she feels like her 'head is under water.' No LH or dizziness, no maxillofacial numbness or pain, no runny nose or congestion, no headache.
Review of Systems
General: Other (12 point ROS performed and is negative unless mentioned above.)
Objective Data
Data Reviewed
Vital Signs / I&O / Oxygen:
Vital Signs
Temp Pulse Resp BP Pulse Ox
98 F 67 18 142/78 95
09/13/23 07:00 09/13/23 07:00 09/13/23 07:00 09/13/23 07:00 09/13/23 07:00
Intake and Output
09/12/23 09/13/23 09/14/23
06:59 06:59 06:59
Intake Total 1120 / 1120 1140 / 1140
Balance 1120 / 1120 1140 / 1140
SaO2 95
Nasal Cannula flow liters per 2
minute
Physical Exam
General: Comfortable
HEENT: Normocephalic and Anicteric
Cardiovascular: S1-S2 and Peripheral Edema (negative)
Respiratory: Clear, Wheeze (negative), Crackles (negative), Rhonchi (negative) and Accessory Resp Muscle Use (negative)
GI: Soft, Non Distended and Non Tender
Neurology: AO x 3
Skin: Warm and Dry
Labs/Micro/Reports
Lab Data
09/13/23 08:24
09/13/23 08:24
[2023-09-13 09:17] LABS: Blood Urea Nitrogen 18 mg/dl (7-17); Calcium 9.7 mg/dl (8.4-10.2); Carbon Dioxide 29 mmol/L (22-30); Chloride 103 mmol/L (98-107); Estimated Creatinine Clearance 89 ml/min; Glucose 96 mg/dl (70-99); Sodium 140 mmol/L (135-145); eGFR > 60.00
[2023-09-13 09:32] LABS: Potassium 4.1 mmol/L (3.5-5.1)
[2023-09-13 11:00] VITALS: BP 107/65
--- NOTE | 2023-09-13 11:45 | W.PN.HOSP.TC ---
Today's Communication/Plan
-
Discharge today
Assessment / Plan
Assessment / Plan
Physical Exam
General: No Apparent Distress and Comfortable
HEENT: Normocephalic
Respiratory: Clear to Auscultation Bilaterally.
Cardiac: Regular Rhythm and S1/S2.
GI: Soft, Nontender and Nondistended. Positive bowel sounds.
Neuro: Awake, Alert, Oriented, No Motor Deficits and Nonfocal/Grossly Intact
Psych: Calm
Assessment/Plan
#Bilateral Submassive Pulmonary Embolism
#History of Pulmonary Embolism
#History of ASD
#Presentation with worsening shortness of breath and cough
#Acute hypoxic respiratory insufficiency
-CT chest pain showed bilateral lung upper lobe emboli burden no evidence of heart strain
-proBNP/troponin within normal limits
-ER discussed with on-call photoengraving helper and no indication for emergent thrombolysis.� Continue monitoring
-PESI score 2 - low risk
-Was on Heparin drip, patient have been on Xarelto on first episode of VTE
-Lower extremity venous doppler normal.
-Continue supplemental oxygen at home to maintain SpO2>90-94%
-Continue Xarelto 15 mg BID for 37 more doses (with the next dose on September 13, 2023 evening) FOLLOWED by Xarelto 20 mg PO once daily with food
-Echocardiogram was done and showed normal biventricular size and systolic function
-Pulmonary consulted, recommendations appreciated
-Follow-up with: Pulmonary and Hematology
#Reported history of COVID-19
#Obstructive Sleep Apnea on Continuous Positive Airway Pressure - Continue CPAP with sleep and do not drive while sleepy or tired.
#History of Lyme disease
#History of right hand osteomyelitis status post surgery
Full code
More than 30 minutes spent in discharge including
Final examination of the patient
Summarizing hospital stay
Instructions for continuing care to all relevant caregivers
Preparation of discharge records, prescriptions, and referral forms
Total time spent (in minutes): 38
Anticipated Discharge: Today
Subjective/Interval History
-
Date of Service: September 13, 2023
Patient was seen and examined. She denied any dizziness or lightheadedness overnight or this morning, she denied any chest pain, but still does have some shortness of breath on exertion.
Objective Data
-
Labs:
Laboratory Results
09/13/23
08:24
WBC 4.5 L
Hgb 14.9
Hct 44.0
Plt Count 235
Sodium 140
Potassium 4.1
Chloride 103
Carbon Dioxide 29
BUN 18 H
Creatinine 0.8
Glucose 96
Calcium 9.7
Vital Signs:
Vital Signs
Temp Pulse Resp BP Pulse Ox
98 F 67 18 142/78 95
09/13/23 07:00 09/13/23 07:00 09/13/23 07:00 09/13/23 07:00 09/13/23 07:00
I&O
09/12/23 09/13/23 09/14/23
06:59 06:59 06:59
Intake Total 1120 / 1120 1140 / 1140
Balance 1120 / 1120 1140 / 1140
--- NOTE | 2023-09-13 12:41 | W.DS.TRANS ---
DC Summary - Criminal Records Technician
-
Discharge Instructions:
Discharge Diagnosis/Procedures #Bilateral Submassive Pulmonary Embolism
#History of Pulmonary Embolism
#History of ASD
#Presentation with worsening shortness of breath
and cough
#Acute hypoxic respiratory insufficiency
#Reported history of COVID-19
#Obstructive Sleep Apnea on Continuous Positive
Airway Pressure
#History of Lyme disease
#History of right hand osteomyelitis status post
surgery
Diet Regular
Activity No strenuous activity
Driving Restrictions No driving
Bathing Restrictions OK to Shower
Other Services VN,PT
Instructions: Pulmonary embolism (blood clot in the lungs)
Rivaroxaban
Pulmonary Embolism (Blood Clot in the Lungs) (DC)
Going Home on Blood Thinners
Stand-Alone Forms:
Changes to Home Medications: Yes
Discharge Medications:
DC Medications w/original date entered in [employer]
rivaroxaban 15 mg tablet (Xarelto) 15 mg PO BID #37 tabs 09/13/23
rivaroxaban 20 mg tablet (Xarelto) 20 mg PO QPM #30 tabs 09/13/23
Home Medication Changes
Rivaroxaban is a new medication
Pending Results: No
Total time spent discharging patient (in min): 38
--- NOTE | 2023-09-14 10:09 | CM ---
(late entry for 09/13/23)
CM following re: d/c planning
Chart reviewed
Pt is medically stable for d/c
Pt provided with bedside O2 provided by [employer]
Pt to continue supplemental O2 as needed to maintain her SATS and CPAP at HS
RT did complete home O2 assessment and patient dropped to 87% however did recover and continues at 2L
Pt drove self to the hospital and states she will drive self home
No additional d/c needs to note
PLAN; d/c home no skilled needs
--- NOTE | 2023-09-22 21:41 | W.DCSUMMARY ---
Discharge Summary
Discharge Data
Date of Admission: 09/09/23
Date of Discharge: 09/13/23
Total time spent discharging patient (in min): 38
-
Pending Results: No
Hospital Course
63-year-old female with past medical history of recent COVID infection and provoked DVT/PE in 2019 after travel (was on Xarelto at that time) came to the emergency room for having new onset of shortness of breath on exertion for 5 days. Patient had
associated chest tightness, but no palpitations or dizziness. CT chest showed bilateral lung upper lobe emboli burden with no evidence of heart strain. Patient was started on Heparin Drip. Emergency room provider discussed with the on-call
armed security guard and it was determined that there was no indication for emergent thrombolysis.�Patient remained short of breath and had some dizziness, echocardiogram was done and pulmonary was consulted. Echocardiogram was overall unremarkable (but
please see separate echocardiogram report for further details), and pulmonary recommended that patient follow-up with hematology outpatient for hypercoagulable work-up and continue continuous positive airway pressure with sleep. Patient was
discharged home with supplemental oxygen.
Discharge Plan
-
Patient Disposition: Home with Home Care
Discharge Diagnosis/Procedures: #Bilateral Submassive Pulmonary Embolism
#History of Pulmonary Embolism
#History of ASD
#Presentation with worsening shortness of breath and cough
#Acute hypoxic respiratory insufficiency
#Reported history of COVID-19
#Obstructive Sleep Apnea on Continuous Positive Airway Pressure
#History of Lyme disease
#History of right hand osteomyelitis status post surgery
Condition: Fair
Diet: Regular
Activity: No strenuous activity
Bathing Restrictions: OK to Shower
Other Services: VN and PT
Activity Restrictions/Additional Instructions:
Xarelto Dosing: sent to your pharmacy: continue 15 mg PO BID through October 01, 2023 followed by (starting on October 02, 2023) 20 mg daily with food
Continue CPAP with sleep - it is very important that you are compliant with your CPAP.
Do not drive while sleepy or tired.
Continue supplemental oxygen at home to maintain oxygen saturations greater than 90% to 94%
Instructions: Pulmonary embolism (blood clot in the lungs), Rivaroxaban, Pulmonary Embolism (Blood Clot in the Lungs) (DC), Going Home on Blood Thinners
Referrals:
Michael Kim DO [Active] - in two to three weeks
Clayton Castro MD [Active] - in two to three weeks
Som Bansal DO [Family Provider] - in one week
Prescriptions:
New
Xarelto 15 mg Tablet
15 mg PO BID Qty: 37 0RF
Rx Instructions:
First dose should be on evening of September 13, 2023
Xarelto 20 mg Tablet
20 mg PO QPM Qty: 30 3RF
Rx Instructions:
First dose should be on October 02, 2023
Discharge Orders:
Discharge Patient (As Directed); Ordered 09/13/23
Ordered By: Adrian Truong
Discharge Date and Time
Discharge Date/Time: 09/13/23 13:49
== END 2023-09-13 13:49 | disposition home health service (06) | DRG 176 ==
LOC: 4 EAST ACU 17:49
PROVIDERS: Physician Assistant; ADMITTING PHYSICIAN Hospitalist; ATTENDING PHYSICIAN Hospitalist; CONSULT PHYSICIAN Internal Medicine Critical Care Medicine; EMERGENCY PHYSICIAN Emergency Medicine; FAMILY PHYSICIAN Internal Medicine
DX: I26.99 Other pulmonary embolism without acute cor pulmonale (principal); Q21.10 Atrial septal defect, unspecified; Z11.52 Encounter for screening for COVID-19; R09.02 Hypoxemia; R06.89 Other abnormalities of breathing; G47.33 Obstructive sleep apnea (adult) (pediatric); E66.9 Obesity, unspecified; Z68.35 Body mass index [BMI] 35.0-35.9, adult
CPT/HCPCS: 80048; 80053; 83880; 84484; 85025; 85027; 85610; 85730; 87502; 87811; 93005; 93306; 93970; 96365; 96366; 99285

== ENCOUNTER → 2023-09-26 10:28 | Outpatient (REF) | payer OTHER, SELFPAY ==
[2023-09-26 10:56] LABS: % Basophils 1.2 % (0-2); % Eosinophils 2.8 % (0-6); % Immature Granulocytes 0.5 % (0-0.5); % Lymphocytes 34.4 % (20.5-51.1); % Monocytes 6.9 % (1.7-9.3); % Neutrophils 54.2 % (42.2-75.2); Absolute Basophils 0.1 10^3/uL (0-0.2); Absolute Eosinophils 0.1 10^3/uL (0-0.7); Absolute Lymphocytes 1.5 10^3/uL (1.2-3.4); Absolute Monocytes 0.3 10^3/uL (0.1-0.6); Absolute Neutrophils 2.3 10^3/uL (1.4-6.5); Hematocrit 44.4 % (37.0-47.0); Hemoglobin 14.9 g/dL (12.0-16.0); Mean Corp Hgb Conc. 33.6 g/dL (33.0-37.0); Mean Corpuscular Hgb 28.5 pg (27.0-31.0); Mean Corpuscular Volume 85.1 fL (81.0-99.0); Mean Platelet Volume 8.7 fL (7.4-10.4); Nucleated Red Blood Cells % 0 %; Platelet Count 264 10^3/uL (130-400); Red Blood Cell Count 5.22 10^6/uL (4.20-5.40); Red Cell Dist. Width 12.4 % (11.5-14.5); White Blood Cell Count 4.2 10^3/uL (4.8-10.8)
[2023-09-26 11:11] LABS: APTT 30.6 Sec (23.4-35.0)
[2023-09-26 12:17] LABS: ALT (SGPT) 22 U/L (0-35); AST (SGOT) 23 U/L (14-36); Albumin 4.3 g/dl (3.5-5.0); Alkaline Phosphatase 72 U/L (38-126); Blood Urea Nitrogen 21 mg/dl (7-17); Calcium 9.8 mg/dl (8.4-10.2); Carbon Dioxide 29 mmol/L (22-30); Chloride 104 mmol/L (98-107); Glucose 86 mg/dl (70-99); Potassium 3.8 mmol/L (3.5-5.1); Sodium 139 mmol/L (135-145); Total Bilirubin 0.5 mg/dl (0.2-1.3); Total Protein 6.7 g/dl (6.3-8.2); eGFR > 60.00
== END ==
LOC: REG 10:28
PROVIDERS: ATTENDING PHYSICIAN Nurse Practitioner Family
DX: Z09 Encounter for follow-up examination after completed treatment for conditions other than malignant neoplasm (principal); Z86.711 Personal history of pulmonary embolism
CPT/HCPCS: 36415; 80053; 85025; 85610; 85730

== ENCOUNTER → 2023-09-30 07:16 | Outpatient (REF) | payer OTHER, SELFPAY | LOC: HWRAD 07:16 | PROVIDERS: ATTENDING PHYSICIAN Nurse Practitioner Family | DX: Z78.0 Asymptomatic menopausal state (principal) | CPT/HCPCS: 77080 ==

== ENCOUNTER → 2023-12-16 09:45 | Outpatient (REF) | payer OTHER, SELFPAY | LOC: DHSLP 09:45 | PROVIDERS: ATTENDING PHYSICIAN Internal Medicine Critical Care Medicine; FAMILY PHYSICIAN Internal Medicine Geriatric Medicine | DX: G47.33 Obstructive sleep apnea (adult) (pediatric) (principal) | CPT/HCPCS: 95810 ==

== ENCOUNTER → 2024-02-24 10:08 | Outpatient (REF) | payer OTHER, SELFPAY | LOC: HWWDC 10:08 | PROVIDERS: ATTENDING PHYSICIAN Nurse Practitioner Family | DX: Z12.31 Encounter for screening mammogram for malignant neoplasm of breast (principal) | CPT/HCPCS: 77063; 77067 ==

== ENCOUNTER → 2024-05-02 09:38 | Outpatient (REF) | payer OTHER, SELFPAY ==
[2024-05-02 11:28] LABS: % Basophils 1.2 % (0-2); % Eosinophils 3.5 % (0-6); % Immature Granulocytes 0.5 % (0-0.5); % Lymphocytes 35.3 % (20.5-51.1); % Monocytes 8.4 % (1.7-9.3); % Neutrophils 51.1 % (42.2-75.2); Absolute Basophils 0.1 10^3/uL (0-0.2); Absolute Eosinophils 0.2 10^3/uL (0-0.7); Absolute Lymphocytes 1.5 10^3/uL (1.2-3.4); Absolute Monocytes 0.4 10^3/uL (0.1-0.6); Absolute Neutrophils 2.2 10^3/uL (1.4-6.5); Hematocrit 42.6 % (37.0-47.0); Hemoglobin 13.8 g/dL (12.0-16.0); Mean Corp Hgb Conc. 32.4 g/dL (33.0-37.0); Mean Corpuscular Hgb 26.8 pg (27.0-31.0); Mean Corpuscular Volume 82.9 fL (81.0-99.0); Mean Platelet Volume 8.9 fL (7.4-10.4); Nucleated Red Blood Cells % 0 %; Platelet Count 292 10^3/uL (130-400); Red Blood Cell Count 5.14 10^6/uL (4.20-5.40); Red Cell Dist. Width 13.5 % (11.5-14.5); White Blood Cell Count 4.3 10^3/uL (4.8-10.8)
[2024-05-02 11:35] LABS: Urine Albumin Negative (Neg - Trace); Urine Bilirubin Negative (Negative); Urine Character Clear (Clear); Urine Color Yellow; Urine Glucose Negative (Negative); Urine Ketone Negative (Negative); Urine Leukocyte Trace (Negative); Urine Nitrite Negative (Negative); Urine Occult Blood Negative (Negative); Urine Specific Gravity 1.015 (<1.030); Urine Urobilinogen Negative (Neg - 1+)
[2024-05-02 11:59] LABS: ALT (SGPT) 24 U/L (0-35); AST (SGOT) 25 U/L (14-36); Albumin 4.2 g/dl (3.5-5.0); Alkaline Phosphatase 76 U/L (38-126); Blood Urea Nitrogen 21 mg/dl (7-17); Calcium 9.7 mg/dl (8.4-10.2); Carbon Dioxide 29 mmol/L (22-30); Chloride 105 mmol/L (98-107); Glucose 97 mg/dl (70-99); HDL Cholesterol 59 mg/dl; LDL Cholesterol, Calculated 86 mg/dl; Potassium 4.3 mmol/L (3.5-5.1); Sodium 143 mmol/L (135-145); Total Bilirubin 0.3 mg/dl (0.2-1.3); Total Cholesterol 168 mg/dl (50-199); Total Protein 6.5 g/dl (6.3-8.2); Triglyceride 115 mg/dl (10-149); Very Low Density Lipoprotein 23 mg/dl (0-30); eGFR > 60.00
[2024-05-02 12:29] LABS: TSH Reflex To Free T4 3.91 uIU/ml (0.47-4.68)
[2024-05-02 12:41] LABS: Urine Squamous Cell >30 /LPF (Few)
[2024-05-02 12:42] LABS: Urine Amorphous Seen
[2024-05-02 12:43] LABS: Urine Bacteria Few (Negative); Urine Red Blood Cell 0-2 /HPF (0-2)
== END ==
LOC: REG 09:38
PROVIDERS: ATTENDING PHYSICIAN Nurse Practitioner Family
DX: Z01.89 Encounter for other specified special examinations (principal)
CPT/HCPCS: 36415; 80053; 80061; 81003; 81015; 84443; 85025

== ENCOUNTER → 2025-06-26 11:30 | Outpatient (REF) | payer OTHER, SELFPAY | LOC: PAVMRI 11:30 | PROVIDERS: ATTENDING PHYSICIAN Otolaryngology; FAMILY PHYSICIAN Nurse Practitioner Family | DX: H90.A22 Sensorineural hearing loss, unilateral, left ear, with restricted hearing on the contralateral side (principal) | CPT/HCPCS: 70553; A9575 ==